=== PATIENT | female | born 2000 | race African-American/Black ===

== ENCOUNTER 2020-08-04 20:05 | Emergency (ER) | payer OTHER ==
[~2020-08-04] VITALS: Ht 157.5 cm; Wt 81.6 kg
[2020-08-04 20:06] VITALS: BP 127/75
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
--- NOTE | 2020-08-04 20:26 | NUR ---
ED Nurse Note: urine sent to lab
[2020-08-04] MEDS ORDERED: BACITRACIN1 EACH TOPIC (20:47)
[2020-08-04 20:53] VITALS: BP 122/70
--- NOTE | 2020-08-04 20:53 | NUR ---
ER DISCHARGE NOTE: Patient is cleared to be discharged per ERMD, pt is aox4, on room air, with stable vital signs. pt was given dc paperwork and paper prescription, pt was able to verbalize understanding, pt id band removed. pt is able to ambulate with steady gait. pt took all belongings.
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
== END 2020-08-04 20:53 | disposition home or self-care (01) ==
LOC: EDBD 20:05 → EMR 20:23
DX: S80.812A Abrasion, left lower leg, initial encounter (principal); Y09 Assault by unspecified means; Y92.9 Unspecified place or not applicable
CPT/HCPCS: 99282